=== PATIENT | female | born 1975 | race Caucasian/White ===

== ENCOUNTER 2020-07-26 06:51 | Emergency (ER) | payer BC ==
[2020-07-26] MEDS ORDERED: Ketorolac 30 MG/ML SDV IM ONE (07:49)
--- NOTE | 2020-07-26 08:06 | EDM.PDOC ---
ED HPI GENERAL MEDICAL PROBLEM - General Chief Complaint: Neck Problem Stated Complaint: PINCHED NERVE IN NECK Time Seen by Provider: 07/26/20 07:59 Source of Information: Reports: Patient History Limitations: Reports: No Limitations - History of Present Illness INITIAL COMMENTS - FREE TEXT/NARRATIVE: 45-year-old female with no past medical history woke up with left neck pain at 0 550. She sleeps on a soft pillow and she is a side sleeper, denies any trauma or falls. She was woken up with pain to her left neck. She tried applying a warm towel and took 4 ibuprofens with mild relief. She states pain radiates to her left arm, described as dull and sharp, with no alleviating factors, exacerbated with movement, currently rated 7/10. She denies fever, chills, headache, chest pain, shortness of breath, focal weakness or numbness. ROS: A 10-point review of systems, other than pertinent positives and negatives as stated per HPI, is otherwise negative Past medical history: No additional pertinent history Past Surgical history: No additional pertinent history Social history: No additional pertinent history Family history: No additional pertinent history PHYSICAL EXAM General: AOx4, GCS = 15, moderate distress HEENT: dry mucous membrane Neck: supple, no meningismus, no Kernig or Brudzinski Cardiac: S1S2 RRR Respiratory: CTAB, no crackles or rales, no wheezing Abdomen: Soft, nontender, no rebound or guarding, nondistended, no pulsatile mass. Back: nontender C/T/L-spine. Left neck trapezius tender and spasm. Musculoskeletal: NVI distally, no deformity Neuro: No focal deficits, CN 2 - 12 WNL. No paresthesia bilateral upper extremities, no weakness to bilateral upper extremities. neck, shoulder Pain Score (Numeric/FACES): 10 - Related Data Allergies Allergy/AdvReac Type Severity Reaction Status Date / Time cold medicine Allergy Itching Uncoded 07/26/20 07:48 Home Meds: Home Meds Cyclobenzaprine [Flexeril] 5 mg PO DAILY #10 tab 07/26/20 [Rx] Naproxen [EC-Naproxen] 500 mg PO BID #10 tablet. 07/26/20 [Rx] ED ROS GENERAL - Review of Systems Review Of Systems: Comprehensive ROS is negative, except as noted in HPI. (see dictation) ED EXAM, UPPER BACK/NECK PAIN - Physical Exam Exam: See Below (see dictation) Course - Vital Signs Last Recorded V/S: Last Vital Signs Temp 96.3 F L 07/26/20 07:49 Pulse 92 07/26/20 07:49 Resp 16 07/26/20 07:49 BP 136/90 07/26/20 07:49 Pulse Ox 95 07/26/20 07:49 - Orders/Labs/Meds Meds: Medications Discontinued Medications Generic Name Dose Route Start Last Admin Trade Name Freq PRN Reason Stop Dose Admin Ketorolac Tromethamine 30 mg 07/26/20 07:49 07/26/20 07:57 Toradol IM 07/26/20 07:50 30 mg ONETIME ONE Administration - Re-Assessments/Exams Free Text/Narrative Re-Assessment/Exam: 07/26/20 08:01 After IM Toradol in the ER, the patient improved and is currently stable for discharge. I performed a repeat exam and did not appreciate new abnormal findings. Patient exhibits normal vital signs. I advised the patient to return to the ER for reevaluation if symptoms worsened, including fever, worsening pain, or any other worrisome symptoms. I instructed the patient to follow up with their PCP within 2-3 days. MEDICAL DECISION MAKING: I reviewed the patients past medical records, lab and radiographic findings. I discussed the case with the patient. My differential diagnosis included: Neck strain, trapezius strain, cervical radiculopathy. Patient symptoms are clinically consistent with strain to her left trapezius. She had no focal deficits or weakness, no C-spine tenderness, I do not suspect cervical spine etiology. I do not suspect need for imaging studies at this time. Instructed on conservative management with ice, anti-inflammatory medication. Strict return precautions. Departure - Departure Time of Disposition: 08:03 Disposition: Home, Self-Care 01 Condition: Good Clinical Impression: Trapezius muscle strain - Discharge Information *PRESCRIPTION DRUG MONITORING PROGRAM REVIEWED*: Not Applicable *COPY OF PRESCRIPTION DRUG MONITORING REPORT IN PATIENT [place]: Not Applicable Prescriptions: Naproxen [EC-Naproxen] 500 mg PO BID #10 tablet. Cyclobenzaprine [Flexeril] 5 mg PO DAILY #10 tab Instructions: Cervical Sprain, [id number] Referrals: Ariel Leon MD [Primary Care Provider] - 3 Days Additional Instructions: The need for follow-up, as well as the timing and circumstances, are variable depending upon the specifics of your emergency department visit. If you don't have a primary care physician on staff, we will provide you with a referral. We always advise you to contact your personal physician following an emergency department visit to inform them of the circumstance of the visit and for follow-up with them and/or the need for any referrals to a consulting specialist. The emergency department will also refer you to a specialist when appropriate. This referral assures that you have the opportunity for follow-up care with a specialist. All of these measure are taken in an effort to provide you with optimal care, which includes your follow-up. Under all circumstances we always encourage you to contact your private physician who remains a resource for coordinating your care. When calling for follow-up care, please make the office aware that this follow-up is from your recent emergency room visit. If for any reason you are refused follow-up, please contact the [facility] Emergency Department at and asked to speak to the emergency department charge nurse. If you do not have a primary care doctor, please follow up with the clinics below within 3-5 days. [facility] - Primary Care [address] [place] [address] [id number] [address] Sepsis Event Note (ED) - Evaluation Sepsis Screening Result: No Definite Risk - Focused Exam Vital Signs: Vital Signs Temp Pulse Resp BP Pulse Ox 07/26/20 07:49 96.3 F L 92 16 136/90 95
[2020-07-26] MEDS ORDERED: Dexamethasone 10 MG/ML SDV IM STA (08:13)
== END 2020-07-26 08:37 | disposition home or self-care (01) ==
LOC: MW.ED 06:51
DX: M54.6 Pain in thoracic spine (principal)
CPT/HCPCS: 96372; 99283; J1100; J1885

== ENCOUNTER 2021-08-16 07:11 | Emergency (ER) | payer BC ==
[2021-08-16] MEDS ORDERED: Diphtheria,Pertussis(Acell),Tetanus Vaccine 0.5 ML Syringe IM ONE (07:55)
--- NOTE | 2021-08-16 08:36 | EDM.PDOC ---
ED HPI GENERAL MEDICAL PROBLEM - General Chief Complaint: Laceration Stated Complaint: CUT ON RIGHT INDEX FINGER Time Seen by Provider: 08/16/21 07:55 - History of Present Illness INITIAL COMMENTS - FREE TEXT/NARRATIVE: 46-year-old female presents complaining of laceration to the right index finger. The patient was washing dishes and caught the edge of a knife and caused a laceration. She does not think there is any bony injury. No numbness or weakness. Worse with movement this pain R hand Pain Score (Numeric/FACES): 1 - Related Data Allergies Allergy/AdvReac Type Severity Reaction Status Date / Time cold medicine Allergy Itching Uncoded 08/16/21 07:34 Home Meds: Home Meds . [No Known Home Meds] 08/16/21 [History] Past Medical History HEENT History: Reports: None Cardiovascular History: Reports: None Respiratory History: Reports: None Gastrointestinal History: Reports: None Genitourinary History: Reports: None [employer] History: Reports: Musculoskeletal History: Reports: None Neurological History: Reports: None Psychiatric History: Reports: None Endocrine/Metabolic History: Reports: None Hematologic History: Reports: None Immunologic History: Reports: None Oncologic (Cancer) History: Reports: None Dermatologic History: Reports: None - Infectious Disease History Infectious Disease History: Reports: Chicken Pox - Past Surgical History Head Surgeries/Procedures: Reports: None Female Surgical History: Reports: Section, Tubal Ligation, Other (See Below) Other Female Surgeries/Procedures: Tubes Removed Musculoskeletal Surgical History: Reports: Other (See Below) Other Musculoskeletal Surgeries/Procedures:: triple cervical fusion Social & Family History - Family History Family Medical History: No Pertinent Family History - Tobacco Use Tobacco Use Status *Q: Never Tobacco User - Caffeine Use Caffeine Use: Reports: None - Recreational Drug Use Recreational Drug Use: No ED ROS GENERAL - Review of Systems Review Of Systems: See Below Musculoskeletal: Denies: Joint Pain Skin: Reports: Other (Laceration) Neurological: Reports: No Symptoms ED EXAM, SKIN/RASH Exam: See Below Text/Narrative:: CONSTITUTIONAL: well appearing in no acute distress SKIN: 3 cm laceration to the right index finger. It is on the proximal phalanx and lateral to the midline dorsally and extends around to the ventral surface and also ends laterally. No foreign body. No underlying bony tenderness. No flexor or extensor tendon laceration through full passive and active range of motion. HENT: Normocephalic, atraumatic, NECK: normal range of motion PULMONARY: normal chest rise and fall, no respiratory distress or stridor NEUROLOGIC: normal speech, moves all extremities, grossly non-focal MUSCULOSKELETAL: no gross deformities, atraumatic PSYCHIATRIC: normal mood and affect ED SKIN PROCEDURES - Laceration/Wound Repair Right Digit - 2nd (Index) Progress/Comments: 3 cm laceration repaired to the right index finger. Cleaned base of finger with Betadine and 7 cc of 1% lidocaine injected with good anesthetic effect. High- pressure irrigation with 250 cc of normal saline. Reevaluated no evidence of foreign body or tendon involvement. 4-0 Ethilon running approximately 6 sutures placed. Patient tolerated the procedure well there are no complications. Splint placed afterwards to prevent sutures from popping. Neurovascular intact after procedure Course - Vital Signs Last Recorded V/S: Last Vital Signs Temp 36.8 C 08/16/21 07:35 Pulse 76 08/16/21 07:35 Resp 16 08/16/21 07:35 BP 131/83 08/16/21 07:35 Pulse Ox 94 L 08/16/21 07:35 - Orders/Labs/Meds Orders: Active Orders 24 hr Category Date Time Status Vaccine to be Administered/Admin Charge [RC] ASDIRECTED Care 08/16/21 07:55 Active Meds: Medications Discontinued Medications Generic Name Dose Route Start Last Admin Trade Name Freq PRN Reason Stop Dose Admin Diphtheria/Tetanus/Acell Pertussis 0.5 ml 08/16/21 07:55 08/16/21 08:01 Diphtheria,Pertussis(Acell),Tetanus Vaccine 0.5 Ml Syringe IM 08/16/21 07:56 0.5 ml .ONCE ONE Administration Lidocaine HCl 5 ml 08/16/21 07:55 08/16/21 08:00 Lidocaine 1% 5 Ml Sdv INJECT 08/16/21 07:56 5 ml ONETIME ONE Administration Departure - Departure Time of Disposition: 08:36 Disposition: Home, Self-Care 01 Condition: Good Clinical Impression: Finger laceration - Discharge Information Instructions: Laceration Care, Adult Referrals: Ariel Leon MD [Primary Care Provider] - Additional Instructions: Return for redness, discharge, fever, any change or worsening condition. Have sutures removed in 7 days. The following information is given to patients seen in the emergency department who are being discharged to home. This information is to outline your options for follow-up care. We provide all patients seen in our emergency department with a follow-up referral. The need for follow-up, as well as the timing and circumstances, are variable depending upon the specifics of your emergency department visit. If you don't have a primary care physician on staff, we will provide you with a referral. We always advise you to contact your personal physician following an emergency department visit to inform them of the circumstance of the visit and for follow-up with them and/or the need for any referrals to a consulting specialist. The emergency department will also refer you to a specialist when appropriate. This referral assures that you have the opportunity for follow-up care with a specialist. All of these measure are taken in an effort to provide you with optimal care, which includes your follow-up. Primary care clinics in the area: [facility] - Primary Care [address] [place] [address] [place] [address] Under all circumstances we always encourage you to contact your private physician who remains a resource for coordinating your care. When calling for follow-up care, please make the office aware that this follow-up is from your recent emergency room visit. If for any reason you are refused follow-up, please contact the [facility] Emergency Department at and asked to speak to the emergency department charge nurse. Sepsis Event Note (ED) - Evaluation Sepsis Screening Result: No Definite Risk - Focused Exam Vital Signs: Vital Signs Temp Pulse Resp BP Pulse Ox 08/16/21 07:35 36.8 C 76 16 131/83 94 L - My Orders Last 24 Hours: My Active Orders 08/16/21 07:55 Vaccine to be Administered/Admin Charge [RC] ASDIRECTED - Assessment/Plan Last 24 Hours: My Active Orders 08/16/21 07:55 Vaccine to be Administered/Admin Charge [RC] ASDIRECTED
== END 2021-08-16 08:44 | disposition home or self-care (01) ==
LOC: MW.ED 07:11
DX: S61.210A Laceration without foreign body of right index finger without damage to nail, initial encounter (principal); Z23 Encounter for immunization; Z88.8 Allergy status to other drugs, medicaments and biological substances; W26.0XXA Contact with knife, initial encounter
CPT/HCPCS: 12002; 90471; 90715; 99282-25